=== PATIENT | female | born 1935 | race Caucasian/White ===

== ENCOUNTER → 2020-06-15 | Outpatient (CLI) | payer MEDICARE, OTHER ==
[~2020-06-15] MED LIST: ACET-1600 PO; ASCO100018 PO; B CO1TAB14 PO; BIOT25005 PO; CHOL10003 PO; LEVO88TA4 PO; LOSA100T14 PO; OMEG1CAP39 PO; SIMV10TA18 PO
[2020-06-15 12:34] LABS: BASOPHILS % (AUTO) 1 % (0-1); EOSINOPHILS % (AUTO) 6 % (1-7); LYMPHOCYTES % (AUTO) 33 % (22-44); MD NO; MEAN CORPUSCULAR HGB CONC 33.4 g/dL (32.4-35.8); MEAN PLATELET VOLUME 9.2 fL (7.4-10.4); MONOCYTES % (AUTO) 12 % (2-9); NEUTROPHILS % (AUTO) 49 % (42-75); PLATELET COUNT 264 x10^3/uL (130-400); RED BLOOD COUNT 5.02 x10^6/uL (3.82-5.3); RED CELL DISTRIBUTION WIDTH 14.2 % (9.6-15.2)
[2020-06-15 12:44] LABS: ALBUMIN 4.2 g/dL (3.4-5.0); CALCIUM 9.7 mg/dL (8.5-10.1); CHLORIDE 109 mmol/L (98-107); CREATININE 1.13 mg/dL (0.55-1.02)
[2020-06-15 12:47] LABS: INTERNATIONAL NORMALIZED RATIO 1.01 (0.93-1.1); PROTHROMBIN TIME 10.7 Seconds (9.6-11.5)
[2020-06-15 12:50] LABS: ALANINE AMINOTRANSFERASE 31 U/L (12-78); ALKALINE PHOSPHATASE 69 U/L (45-117); BILIRUBIN,TOTAL 0.6 mg/dL (0.2-1.0); TOTAL PROTEIN 8.1 g/dL (6.4-8.2)
[2020-06-15 13:00] LABS: ANION GAP 4 mmol/L (5-15)
== END | disposition home or self-care (01) ==
LOC: STAR 11:03
PROVIDERS: ATTEND Orthopaedic Surgery
DX: Z01.818 Encounter for other preprocedural examination (principal); M17.12 Unilateral primary osteoarthritis, left knee
CPT/HCPCS: 36415; 80053; 83036; 85025; 85610; 85730; 87081; 87147; 87806; 93005; G0475

== ENCOUNTER → 2020-06-23 | Outpatient (CLI) | payer MEDICARE, OTHER | END | disposition home or self-care (01) | LOC: STAR 10:06 | PROVIDERS: ATTEND Orthopaedic Surgery | DX: Z20.828 Contact with and (suspected) exposure to other viral communicable diseases (principal) | CPT/HCPCS: 87635 ==

== ENCOUNTER 2020-06-28 10:24 | Observation (INO) | payer MEDICARE, OTHER ==
[~2020-06-28] VITALS: Ht 172.7 cm; Wt 71.0 kg
[~2020-06-28 10:24] MED LIST changes: +EPINEPHRINE 1 MG/ML, 1ML ONE; +KETOROLAC 60 MG/2 ML ONE; +ROPIvacaine/PF 0.2%, 20 ML ONE; +SODIUM CHLORIDE 0.9% 50 ML ONE; +TRANEXAMIC ACID 100 MG/ML, 10ML ONE; +VANCOMYCIN 1,000 MG ONE
[2020-06-28] MEDS ORDERED: CHLORHEXIDINE 15 ML UDC MM STA (10:35)
[2020-06-28] MEDS ORDERED: CHLORHEXIDINE 15 ML UDC ONE (10:55)
[2020-06-28] MEDS ORDERED: LACTATED RINGERS 1,000 ML IV SCH (11:00)
[2020-06-28] MEDS ORDERED: ACETAMINOPHEN 500 MG TABLET PO ONE (11:00)
[2020-06-28] MEDS ORDERED: GABAPENTIN 300 MG CAPSULE PO ONE (11:00)
[2020-06-28] MEDS ORDERED: FENTANYL PF 250 MCG/5ML ONE ×2 (12:00→13:40)
[2020-06-28] MEDS ORDERED: DIPHENHYDRAMINE 50 MG/ML, 1ML IVPush PRN (13:00)
[2020-06-28] MEDS ORDERED: ALUMINUM/MAG/SIMETHICONE 30 ML UDC PO PRN (13:00)
[2020-06-28] MEDS ORDERED: DIPHENHYDRAMINE 50 MG CAPSULE PO PRN (13:00)
[2020-06-28] MEDS ORDERED: METOCLOPRAMIDE 5 MG/ML, 2ML IVPush PRN (13:00)
[2020-06-28] MEDS ORDERED: POLYETHYLENE GLYCOL 17 GM PACKET PO PRN (13:00)
[2020-06-28] MEDS ORDERED: HYDROmorphone 1 MG/ML, 1ML INJ IVPush PRN ×2 (13:00→14:00)
[2020-06-28] MEDS ORDERED: OXYcodone IR 5MG TABLET PO PRN (13:00)
[2020-06-28] MEDS ORDERED: ONDANSETRON 2MG/ML, 2ML IVPush PRN ×2 (13:00→14:00)
[2020-06-28] MEDS ORDERED: ACETAMINOPHEN 650 MG/20.3 ML UDC PO PRN (13:00)
[2020-06-28] MEDS ORDERED: ONDANSETRON 4 MG TABLET PO PRN (13:00)
[2020-06-28] MEDS ORDERED: SENNA/DOCUSATE TABLET PO PRN (13:00)
[2020-06-28] MEDS ORDERED: PROMETHAZINE 12.5 MG SUPP PR PRN (13:00)
[2020-06-28] MEDS ORDERED: MAGNESIUM HYDROXIDE 8%, 30ML UDC PO PRN (13:00)
[2020-06-28] MEDS ORDERED: DEXAMETHASONE 4 MG/ML, 1ML IVPush SCH (13:00)
[2020-06-28] MEDS ORDERED: TRANEXAMIC ACID 1,000 MG in SODIUM CHLORIDE 0.9% 100 ML IVPB ONE (13:00)
[2020-06-28] MEDS ORDERED: DEXAMETHASONE 4 MG/ML, 1ML ONE (13:03)
[2020-06-28] MEDS ORDERED: NEOSTIGMINE 1 MG/ML, 10ML ONE (13:03)
[2020-06-28] MEDS ORDERED: GLYCOPYRROLATE 0.2MG/1ML, 5ML ONE (13:03)
[2020-06-28] MEDS ORDERED: ROCURONIUM 10 MG/ML,10ML ONE (13:03)
[2020-06-28] MEDS ORDERED: ONDANSETRON 2MG/ML, 2ML ONE (13:03)
[2020-06-28] MEDS ORDERED: CEFAZOLIN 1,000 MG ONE (13:03)
[2020-06-28] MEDS ORDERED: SUCCINYLCHOLINE 20 MG/ML, 10ML ONE (13:03)
[2020-06-28] MEDS ORDERED: PROPOFOL 10 MG/ML, 20ML ONE (13:03)
[2020-06-28] MEDS ORDERED: LABETALOL 5MG/ML, 20ML IV PRN (14:00)
[2020-06-28] MEDS ORDERED: EPHEDRINE 50 MG/ML, 1ML IVPush PRN (14:00)
[2020-06-28] MEDS ORDERED: OXYcodone 5 MG/5 ML ORAL.SOL UDC PO PRN (14:00)
[2020-06-28] MEDS ORDERED: LORazepam 2 MG/ML, 1ML IVPush PRN (14:00)
[2020-06-28] MEDS ORDERED: ACETAMINOPHEN 325 MG TABLET PO PRN (14:00)
[2020-06-28] MEDS ORDERED: HALOPERIDOL 5 MG/ML IV PRN (14:00)
[2020-06-28] MEDS ORDERED: EPHEDRINE 50 MG/ML, 1ML IM PRN (14:00)
[2020-06-28] MEDS ORDERED: FENTANYL PF 100 MCG/2ML IV PRN (14:00)
[2020-06-28] MEDS ORDERED: METHOCARBAMOL 1,000 MG in DEXTROSE 5% 100 ML IV PRN (14:00)
[2020-06-28] MEDS ORDERED: hydrALAzine 20 MG/ML, 1ML IV PRN (14:00)
[2020-06-28 18:30] VITALS: BP 158/86
[2020-06-28 20:28] VITALS: BP 148/74
[2020-06-28] MEDS ORDERED: SIMVASTATIN 10 MG TABLET PO SCH (21:00)
[2020-06-28] MEDS: POTASSIUM CHLORIDE 20 MEQ in D5%-0.45% NACL 1,000 ML IV SCH (22:54)
[2020-06-28] MEDS: DOCUSATE 100 MG CAPSULE PO SCH (22:54)
[2020-06-28] MEDS: CEFAZOLIN PMX 1GM/50ML 50 ML IVPB SCH (22:54)
[2020-06-28 23:57] VITALS: BP 139/79
[2020-06-29 04:00] VITALS: BP 137/85
[2020-06-29] MEDS: APIXABAN 2.5 MG TABLET PO SCH ×2 (05:32→05:41)
[2020-06-29] MEDS: CEFAZOLIN PMX 1GM/50ML 50 ML IVPB SCH (06:00)
[2020-06-29] MEDS ORDERED: LEVOTHYROXINE 88 MCG TABLET PO SCH (06:00)
[2020-06-29 06:40] VITALS: BP 104/66
[2020-06-29] MEDS ORDERED: TAMSULOSIN 0.4 MG CAP.ER.24H PO SCH (09:00)
[2020-06-29] MEDS ORDERED: LOSARTAN 100 MG TAB PO SCH (09:00)
[2020-06-29] MEDS: POTASSIUM CHLORIDE 20 MEQ in D5%-0.45% NACL 1,000 ML IV SCH (09:38)
[2020-06-29] MEDS: DOCUSATE 100 MG CAPSULE PO SCH (09:45)
== END 2020-06-29 11:25 | disposition home or self-care (01) ==
LOC: OUT 10:24 → ORIP 12:59 → 4NE 18:24 → DCLOUNGE 06-29 11:19
PROVIDERS: ADMIT Orthopaedic Surgery; ATTEND Orthopaedic Surgery
DX: M17.0 Bilateral primary osteoarthritis of knee (principal); M71.22 Synovial cyst of popliteal space [Baker], left knee; I10 Essential (primary) hypertension; E03.9 Hypothyroidism, unspecified; Z79.899 Other long term (current) drug therapy
CPT/HCPCS: 27447; 36415; 73560; 85014; 85018; 96361; 96365; 96366; 97162; 97165; C1713; C1776; G0378; J0171; J0330; J0690; J1100; J1885; J2405; J2704; J2710; J2795; J2800; J3010; J3480; J7120; J3370